=== PATIENT | male | born 1985 | race Hispanic/Latino ===

== ENCOUNTER 2018-04-22 16:45 | Emergency (ER) | payer SELFPAY ==
[~2018-04-22 16:45] MED LIST: LEVAQUIN500 MG PO
== END 2018-04-22 16:46 | disposition left against medical advice (07) | DRG 951 ==
LOC: ED 16:45 → LWOBS 16:46
DX: Z91.19 Patient's noncompliance with other medical treatment and regimen (principal)

== ENCOUNTER 2020-12-25 19:11 | Emergency (ER) | payer SELFPAY ==
[2020-12-25] MEDS ORDERED: BACTRIM DS1 TAB PO (20:15)
[2020-12-25] MEDS ORDERED: KEFLEX500 MG PO (20:15)
[2020-12-25 21:15] VITALS: BP 105/78
== END 2020-12-25 21:15 | disposition home or self-care (01) | DRG 603 ==
LOC: ED 19:11
DX: L02.413 Cutaneous abscess of right upper limb (principal); L02.415 Cutaneous abscess of right lower limb; B95.62 Methicillin resistant Staphylococcus aureus infection as the cause of diseases classified elsewhere